=== PATIENT | female | born 1965 | race Caucasian/White ===

== ENCOUNTER 2023-09-04 08:50 | Outpatient (OUT) | payer BC, SELFPAY ==
--- NOTE | 2023-09-04 08:56 | ECG_ITS ---
[facility] Test Date: 2023-09-04 Pat Name: SOL ASCENCIO Department: Room: - Gender: Female Ticket Marker: : 1965 Requested By: Order Number: [id number] Reading MD: DANIS HUBBARD Measurements Intervals [place] Rate: 55 P: 48 ID: [id number] QRS: 3 QRSD: 91 T: 27 QT: 425 QTc: 410 Interpretive Statements SINUS BRADYCARDIA WITH OCCASIONAL VENTRICULAR PREMATURE COMPLEXES No previous ECG available for comparison Electronically Signed On 09-04-2023 22:25:12 EDT by DANIS HUBBARD
== END 2023-09-04 08:51 | disposition home or self-care (01) ==
LOC: PST 08:53
PROVIDERS: Visit Provider Obstetrics & Gynecology
DX: Z01.810 Encounter for preprocedural cardiovascular examination (principal); N87.1 Moderate cervical dysplasia
CPT/HCPCS: 93005

== ENCOUNTER 2023-09-21 07:26 | Day surgery (SDC) | payer BC, SELFPAY ==
[2023-09-04 09:01] VITALS: BP 142/80; PULSE 58; TEMP 36.2; O2SAT 98; BMI 28.5
[2023-09-21] VITALS (11 sets, daily range): BP systolic 105–161; BP diastolic 79–94; PULSE 54–74; TEMP 35.8–36.5; O2SAT 95–100
--- OUTSIDE RECORDS SUMMARY | 2023-09-21 07:29 | XMS_ITS ---
Patient Summarization (C-CDA 2.1 CCD) Created on: September 21, 2023 KARUNAGUIDOOmar AZEVEDO SOL Omar~SONU : 1965 Sex: Female Author Organization Sample organization Care Team Providers Care Pc Support Specialist Name Role Phone NATALIA BAH Admitting Unavailable NATALIA BAH Attending Unavailable NATALIA BAH Consulting Unavailable DORON, SMITH Barnes Attending Unavailab le HOOPS, HALLE Attending Unavailable HAVERNON, SMITH A Referring Unavailab le HACKRUTHBURG, SMITH A Attending Unavailab le FLORO, MOE Nelson Attending Unavailable FLORO, MOE Nelson Attending Unavailable HACKENBURG, SMITH A Attending Unavailab le ALCIRA, JOSE MANUEL Attending Unavailable MIRANDAO, MOE Nelson Referring Unavailable Encounters Encounter Date Encounter Type Care Provider Facility Start: 08-07-2023 End: 08-07-2023 ambulatory JOSE MANUEL ALCIRA Not Available Start: 07-24-2023 End: 07-24-2023 ambulatory SMITH A HACKENBURG Not Available Start: 07-18-2023 End: 07-19-2023 ambulatory MOE L FLORO Not Available Start: 07-03-2023 End: 07-04-2023 ambulatory MOE L FLORO Not Available Start: 06-22-2023 End: 06-22-2023 ambulatory SMITH A HACKENBURG Not Available Start: 06-13-2023 End: 06-14-2023 ambulatory SMITH A HACKENBURG Not Available Start: 06-05-2023 End: 06-06-2023 ambulatory HALLE HOOPS Not Available Start: 08-15-2018 End: 08-15-2018 Patient encounter procedure NATALIA BAH Facility: Payers Date Payer Category Payer Unknown [id number] 1965 Unknown [id number] 2.16.84 [id number] 1965 Unknown [id number] 2.16.84 0.1.396318.3.579.2.1258 1965 Unknown [id number] 2.16.84 0.1.642274.3.579.2.1258 1965 Unknown [id number] 2.16.84 0.1.599518.3.579.2.1258 1965 Unknown [id number] 2.16.84 0.1.433703.3.579.2.1258 1965 Unknown [id number] 2.16.84 0.1.301904.3.579.2.1258 1965 Unknown [id number] 2.16.84 0.1.598962.3.579.2.1258 1965 Unknown [id number] 2.16.84 0.1.241378.3.579.2.1258 1965 Unknown [id number] 2.16.84 0.1.981804.3.579.2.1258 1965 Unknown [id number] 2.16.84 0.1.160797.3.579.2.9 1961 Unknown [id number] Problems Problem Classification Problem Date Documented Da te Episodic/Chronic Other screening for suspected conditions (not mental disorders or infectious disease) (4 sources) Encounter for screening for malignant neoplasm of cervix; Translations: [ENC SCREENING MALIG NEOPLASM CERV] Onset: 08-15-2018 Episodic Results Test Name Value Interpretation Reference Range Facility BI MAMMOGRAM SCREENING TOMOS BISHNU BILATERALon 06-13-2023 BI MAMMOGRAM SCREENING TOMOSYNTHESIS BILATERAL This is a summary report. The complete report is available in the patient's medical record. If you cannot access the medical record, please contact the sending organization for a detailed fax or copy. EXAMINATION: BI MAMMOGRAM SCREENING TOMOSYNTHESIS BILATERAL CLINICAL HISTORY:screening COMPARISON: February 15, 2022. RESULT: Digital mammography and 3D tomosynthesis of bilateral breasts was performed. Density: Almost entirely fatty [1] Overall appearance is stable. There is no suspicious mass, asymmetry, architectural distortion, or calcification IMPRESSION: BIRADS 1 - Negative Follow-up: Routine Screening Mamm Board Certified Radiologists. Accredited by the ACR and FDA. MAMMOGRAPHY IS VERY IMPORTANT TO YOUR HEALTH. THE [place] [employer] GUIDELINES RECOMMEND THAT WOMEN 40 YEARS OF AGE AND OLDER SHOULD HAVE A MAMMOGRAM EVERY YEAR. A REMINDER LETTER WILL BE SENT AT THE APPROPRIATE TIME. THIS FACILITY UTILIZES A REMINDER SYSTEM TO ENSURE ALL PATIENTS RECEIVE REMINDER NOTIFICATIONS AT THE APPROPRIATE TIME BASED ON THE RECOMMENDATIONS OF THIS EXAM. THIS INCLUDES REMINDERS FOR ROUTINE SCREENING MAMMOGRAMS, DIAGNOSTIC MAMMOGRAMS IN WHICH THE PATIENT IS ASKED TO RETURN FOR ADDITIONAL VIEWS, OR OTHER BREAST IMAGING INTERVENTIONS WHEN APPROPRIATE. THE PATIENT WILL BE PLACED IN THE APPROPRIATE REMINDER SYSTEM INCLUDING A REMINDER AT THE APPROPRIATE TIME FOR ANY PENDING ADDITIONAL VIEWS. TRANSCRIBED BY: ELECTRONICALLY SIGNED BY: Herbie Alvarado MD Normal Not Available PAP ACOG PANEL 2: 30 to 65on 08-17-2018 Age Gdln ACOG Testing - Normal [facility] Comment on above: Performed By: #### [id number] #### [facility] [address] [place] [address] Varinder Elliott DIAGNOSIS: Comment Abnormal [facility] Comment on above: Result Comment: EPIT HELIAL CELL ABNORMALITY. ATYPICAL SQUAMOUS CELLS OF UNDETERMINED SIGNIFICANCE (ASC-US). Performed at: WB Performed By: #### [id number] #### [facility] [address] [place] [address] Varinder Elliott Electronically signed by: Comment Normal [facility] Comment on above: Result Comment: Tracy Faulkner MD, Pathologist Performed at: WB Performed By: #### [id number] #### [facility] [address] [place] [address] Varinder Elliott HPV Aptima Negative Normal Negative [facility] Comment on above: Result Comment: This test detects fourteen high-risk HPV types (16/18/31/33/35/39/45/ 51/52/56/58/59/66/68) without differentiation. Performed at: =G Performed By: #### [id number] #### [facility] [address] [place] [address] Varinder Elliott Methodology: Comment Normal [facility] Comment on above: Result Comment: This liquid based ThinPrep(R) pap test was screened with the use of an image guided system. Performed at: WB Performed By: #### [id number] #### [facility] [address] [id number] Varinder Lexi Note: Comment Normal [facility] Comment on above: Result Comment: The Pap smear is a screening test designed to aid in the detection of premalignant and malignant conditions of the uterine cervix. It is not a diagnostic procedure and should not be used as the sole means of detecting cervical cancer. Both false-positive and false-negative reports do occur. . Performed at: WB Performed By: #### [id number] #### [facility] [address] [address] Varinder Lexi Performed by: Comment Normal [facility] Comment on above: Result Comment: Dov De Leon, Power Generating Plant Operator (ASCP) Performed at: WB Performed By: #### [id number] #### [facility] [address] [address] Varinder Lexi Protein mass conc Comment Normal [facility] Comment on above: Result Comment: R87. 610 Performed at: WB Performed By: #### [id number] #### [facility] [address] [id number] Varinder Lexi Recommendation: Comment Abnormal [facility] Comment on above: Result Comment: Sugg est follow up as clinically appropriate. Performed at: WB Performed By: #### [id number] #### [facility] [address] [address] Varinder Lexi Specimen adequacy: Comment Normal [facility] Comment on above: Result Comment: Sati sfactory for evaluation. Endocervical and/or squamous metaplastic cells (endocervical component) are present. Performed at: WB Performed By: #### 4 [id number] #### [facility] [address] [id number] Varinder Lexi . . Normal [facility] Comment on above: Result Comment: Perf ormed at: WB Performed By: #### [id number] #### [facility] [address] [id number] Varinder Lexi Summary Purpose Family History No Family History Records FoundNo Family History Records Found Advance Directives No Advanced Directives Records FoundNo Advanced Directives Records Found Additional Source Comments INFORMATION SOURCE (unrecogn ized section and content) DATE CREATED AUTHOR 08/23/2018 [facility] DATE CREATED AUTHOR AUTHOR'Bere ANGULO 08/09/2023 [facility] FOR RECORDS PERTAINING TO PATIENTS WHO ARE OR HAVE BEEN ENROLLED IN A CHEMICAL DEPENDENCY/SUBSTANCEABUSE PROGRAM, SOME INFORMATION MAY BE OMITTED. This clinical summary was aggregated from multiple sources. Caution should be exercised in using it in the provision of clinical care. This summary normalizes information from multiple sources, and as a consequence, information in this document may materially change the coding, format and clinical context of patient data. In addition, data may be omitted in some cases. CLINICAL DECISIONS SHOULD BE BASED ON THE PRIMARY CLINICAL RECORDS. [facility] [employer] provides no warranty or guarantee of the accuracy or completeness of information in this document.
[2023-09-21 07:36] LABS: Basophils Percent Auto 0.7 % (0.2-2.0); Eosinophils Absolute Auto 0.2 10^3/uL (0.0-0.7); Eosinophils Percent Auto 5.4 % (0.9-7.0); Hematocrit 36.6 % (36.0-48.0); Hemoglobin 12.2 g/dL (12.0-16.0); Immature Granulocytes Abs Auto 0.01 10^3/uL (0.00-0.03); Immature Granulocytes Pct Auto 0.2 % (0.0-0.5); Lymphocytes Absolute Auto 1.3 10^3/uL (1.2-3.8); Lymphocytes Percent Auto 31.3 % (20.5-60.0); Mean Corpuscular HGB Conc 33.3 g/dL (29.9-35.2); Mean Corpuscular Hemoglobin 33.9 pg (26.7-34.0); Mean Corpuscular Volume 101.7 fL (81.0-99.0); Mean Platelet Volume 9.6 fL (9.5-13.5); Monocytes Absolute Auto 0.5 10^3/uL (0.3-0.8); Monocytes Percent Auto 12.1 % (1.7-12.0); Neutrophils Absolute Auto 2.2 10^3/uL (1.4-6.5); Neutrophils Percent Auto 50.3 % (43.0-75.0); Platelet Count 252 10^3/uL (150-450); Red Cell Distribution Width 12.7 % (11.0-15.0); White Blood Count 4.3 10^3/uL (4.0-11.0)
[2023-09-21] MEDS: LACTATED RINGER'S SOLUTION 1,000 ML 50 ML IV (07:53)
[2023-09-21] MEDS: IODINE/POTASSIUM IODIDE 8 ML SOLUTION TOPICAL (09:08)
[2023-09-21] MEDS: FERRIC SUBSULFATE 8 ML SOLUTION TOPICAL (09:08)
--- NOTE | 2023-09-21 09:15 | PM.ONB ---
Brief Operative Note Date of procedure: 09/21/23 Pre-op diagnosis general: cervical dysplasia Post-op diagnosis: same as pre-op Procedure: NAME OF PROCEDURE: [leep ] PROCEDURE: Patient was taken back to the Operating Room where she was given general anesthesia without difficulty. She was then placed in the dorsal lithotomy position. She was then prepped and draped in the normal sterile fashion. A weighted speculum was placed into the patient's vagina. The anterior lip of the cervix was identified and grasped with a single-tooth tenaculum. The patient's cervix was then copiously irrigated using vinegar.? Then, a Lugol Solution was also placed onto the patient's cervix which demonstrated increased uptake of the Lugol solution at the [3? ] o?clock and [7? ] o?clock positions.? At that time, the LEEP portion of the procedure was performed, including both the [3? ] o?clock and [?7 ] o?clock positions. tophat was peformed. The ectocervix and endocervical tissue was sent out to Pathology. The patient's cervix was then coagulated using suction cautery. Excellent hemostasis was assured.? Monsel Solution was then placed onto the patient's cervix to help maintain adequate hemostasis. All instruments were removed from the patient's vagina. The anterior lip of the cervix demonstrated excellent hemostasis.? The patient tolerated the procedure well. Sponge, lap, and needle counts were correct x 2. The patient was taken to Recovery Room in stable condition. Anesthesia: MAC Surgeon: José Miguel Chandra Estimated blood loss (mL): 5 Pathology: other (endo and ectocervical tissue) Condition: stable Disposition: PACU Urinary Catheter Management Urinary Catheter Management Urethral: Cath placed during this visit: no
--- NOTE | 2023-09-21 10:31 | PC.NURSE ---
1020: pt ambulates to bathroom with minimal assistance,voids without difficulty.
== END 2023-09-21 10:23 | disposition home or self-care (01) ==
PROVIDERS: Visit Provider Obstetrics & Gynecology
PROC: (CPT 940; principal; 2023-09-21 08:25)
DX: N87.1 Moderate cervical dysplasia (principal); A63.0 Anogenital (venereal) warts; Z90.49 Acquired absence of other specified parts of digestive tract; Z98.51 Tubal ligation status; J45.909 Unspecified asthma, uncomplicated
CPT/HCPCS: 57522; 36415; 85025; 88307; J1100; J1885; J2250; J2405; J2704; J3010

== ENCOUNTER 2024-02-07 19:25 | Outpatient (REF) | payer BC, SELFPAY ==
--- OUTSIDE RECORDS SUMMARY | 2024-02-07 19:30 | XMS_ITS | CCD ---
Author Organization [facility] Care Team Providers Care Senior Mechanical Project Manager Name Role Phone NATALIA BAH Admitting Unavailable NATALIA BAH Attending Unavailable NATALIA BAH Consulting DO Jose Manuel Rojas Attending Provider Jose Manuel Chandra Attending Unavailable Jose Manuel Chandra Admitting Unavailable SMITH SAL Attending UnavailHALLE Joel Attending Unavailable SMITH SAL Referring Unavailab roshan SAL, SMITH Barnes Attending UnavailMOE Cisse Attending Unavailable MOE CURTIS Attending Unavailable DORON, SMITH Barnes Attending Unavailab JOSE MANUEL Fish Attending Unavailable MOE CURTIS Referring Unavailable JOSE MANUEL CHANDRA Attending Unavailable ISIDRO BISWAS Attending Unavailable Problems Problem Classification Problem Date Documented Da te Episodic/Chronic Other screening for suspected conditions (not mental disorders or infectious disease) (4 sources) Encounter for screening for malignant neoplasm of cervix; Translations: [ENC SCREENING MALIG NEOPLASM CERV] Onset: 08-15-2018 Episodic Results Test Name Value Interpretation Reference Range Facility [facility] 09-21-2023 L Specimen: [id number] Received: 09/21/23 Status: JESSICA Clifton Num: [id number] Spec Type: Surgical Subm Dr: Jose Manuel Chandra Tissues: A Cone/Leep (ECTOCERVICAL) B Endocervix - Biopsy (ENDOCERVICAL BX) Procedures: HE/10, Gross/Micro L5, Gross/Micro L4 Age/ Patient Sex Location Account Attending Physician Vickie Duvall 57/F LABELL [id number] Jose Manuel Chandra SPEC NUM: [id number] RECD: 09/21/23 STATUS: JESSICA CLIFTON NUM: [id number] MESHA: 09/21/[address]: Jose Manuel Chandra ENTERED: 09/21/[address] [facility] DR: Kamaljit,Lab SPEC TYPE: Surgical DEPT: [facility] BY: [id number] ORDERED: HE/10, Gross/Micro L5, Gross/Micro L4 ORDERED: HE/10, Gross/Micro L5, Gross/Micro L4 Pathological Diagnosis A. 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 B. 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 Clinical Information Cervical intraepithelial neoplasia grade 2 Gross Description Received are 2 formalin filled containers each labeled with the patient's name, date of and specific specimen site. A. Further labeled ectocervical BX are 3 portions of cervical tissue ranging from 1.1 to 2.0 cm and measuring in aggregate 2.1 x 1.7 x 0.3 cm. The ectocervix present is kan-pink, smooth and unremarkable. Each fragment is inked blue along its resection margin. Each fragment is serially sectioned revealing unremarkable kan cut surfaces with no visible lesions present. The specimen is entirely submitted in A1?A2. B. Further labeled endocervical BX is a 1.2 x 1.1 x 0.5 cm portion of kan, cauterized cervical tissue. The specimen is inked green along its resection margin, serially sectioned revealing unremarkable kan-pink cut surfaces. No visible lesions are present. The specimen is entirely submitted in B1. ---- Specimen: [id number] Received: 09/21/23 Status: JESSICA Clifton Num: [id number] Spec Type: Surgical Subm Dr: Jose Manuel Chandra Tissues: A Cone/Leep (ECTOCERVICAL) B Endocervix - Biopsy (ENDOCERVICAL BX) Procedures: HE/10, Gross/Micro L5, Gross/Micro L4 ---- Patient: Vickie Duvall [id number] (Continued) ---- Specimen: [id number] Received: 09/21/23 (Continued) Signed (signature on file) Lucinda Collazo MD 09/24/23 1400 ---- Specimen: [id number] Received: 09/21/23 Status: JESSICA Clifton Num: [id number] Spec Type: Surgical Subm Dr: Jose Manuel Chandra Tissues: A Cone/Leep (ECTOCERVICAL) B Endocervix - Biopsy (ENDOCERVICAL BX) Procedures: CHANTE/Gm, Gross/Micro L5, Gross/Micro L4 ---- Patient: Vickie Duvall [id number] (Continued) ---- Specimen: [id number] Received: 09/21/23 (Continued) CPT Codes 71055v1 ---- ---- Specimen: [id number] Received: 09/21/23 Status: JESSICA Clifton Num: [id number] Spec Type: Surgical Subm Dr: Jose Manuel Chandra Tissues: A Cone/Leep (ECTOCERVICAL) B Endocervix - Biopsy (ENDOCERVICAL BX) Procedures: HE/10, Gross/Micro L5, Gross/Micro L4 ---- Patient: Vickie Duvall [id number] (Continued) ---- Signed (signature on file) Lucinda Collazo MD 09/24/23 1400 Normal [facility] Physician [facility] BI MAMMOGRAM SCREENING TOMOS YNTHESIS BILATERALon 06-13-2023 BI MAMMOGRAM SCREENING TOMOSYNTHESIS BILATERAL [...] IS VERY IMPORTANT TO YOUR HEALTH. THE [place] CAN[employer] SOCIETY GUIDELINES RECOMMEND THAT WOMEN 40 [...] to 65on 08-17-2018 Age Gdln ACOG Testing 30-65 Normal [facility] Comment on above: Performed By: #### [id number] #### [facility] [address] [place] [address] Varinder Elliott DIAGNOSIS: Comment Abnormal [facility] Comment on above: Result Comment: EPIT HELIAL CELL ABNORMALITY. ATYPICAL SQUAMOUS CELLS OF UNDETERMINED SIGNIFICANCE (ASC-US). Performed at: WB Performed By: #### [id number] #### [facility] [address] [place] [address] Varinder Elliott Electronically signed by: Comment Normal [facility] Comment on above: Result Comment: Tracy Faulkner MD, Pathologist Performed at: WB Performed By: #### [id number] #### [facility] [address] [place] [address] Varinder Elliott HPV Aptima Negative Normal Negative [facility] Comment on above: Result Comment: This test detects fourteen high-risk HPV types (16/18/31/33/35/39/45/ 51/52/56/58/59/66/68) without differentiation. Performed at: =G Performed By: #### [id number] #### [facility] [address] [place] [address] Varinder Elliott Methodology: Comment Normal [facility] Comment on above: Result Comment: This liquid based ThinPrep(R) pap test was screened with the use of an image guided system. Performed at: WB Performed By: #### [id number] #### [facility] [address] [place] [address] Varinder Elliott Note: Comment Normal [facility] Comment on above: Result Comment: The Pap smear is a screening test designed to aid in the detection of premalignant and malignant conditions of the uterine cervix. It is not a diagnostic procedure and should not be used as the sole means of detecting cervical cancer. Both false-positive and false-negative reports do occur. . Performed at: WB Performed By: #### [id number] #### [facility] [address] [place] [address] Varinder Elliott Performed by: Comment Normal [facility] Comment on above: Result Comment: Dov De Leon, Education Officer (ASCP) Performed at: WB Performed By: #### [id number] #### [facility] [address], [place] [address] Varindercandy Elliott Protein mass conc Comment Normal [facility] Comment on above: Result Comment: R87. 610 Performed at: WB Performed By: #### [id number] #### [facility] [address] [place], [place] [address] Varindercandy Elliott Recommendation: Comment Abnormal [facility] Comment on above: Result Comment: Sugg est follow up as clinically appropriate. Performed at: WB Performed By: #### [id number] #### [facility] [address] [place], [place] [address] Varinder Elliott Specimen adequacy: Comment Normal [facility] Comment on above: Result Comment: Sati sfactory for evaluation. Endocervical and/or squamous metaplastic cells (endocervical component) are present. Performed at: WB Performed By: #### [id number] #### [facility] [address] [place], [place] [address] Varinder Elliott . . Normal [facility] Comment on above: Result Comment: Perf ormed at: WB Performed By: #### [id number] #### [facility] [address] [place], [place] [address] Varinder Elliott Encounters Encounter Date Encounter Type Care Provider Facility Start: 10-04-2023 End: 10-04-2023 ambulatory ISIDRO BISWAS Not Available Start: 09-21-2023 End: 09-21-2023 ambulatory Jose Manuel Prateek [facility] Work Phone: Start: 09-21-2023 End: 09-21-2023 Departed Referred DO Jose Manuel Prateek Work Phone: [facility] Start: 08-27-2023 End: 08-27-2023 ambulatory JOSE AMNUEL PRATEEK Not Available Start: 08-07-2023 End: 08-07-2023 ambulatory JOSE MANUEL PRATEEK Not Available Start: 07-24-2023 End: 07-24-2023 ambulatory SMITH SAL Not Available Start: 07-18-2023 End: 07-18-2023 ambulatory MOE JEANO Not Available Start: 07-03-2023 End: 07-03-2023 ambulatory MOE Nelson FLORO Not Available Start: 06-22-2023 End: 06-22-2023 ambulatory SMITH SAL Not Available Start: 06-13-2023 End: 06-13-2023 ambulatory SMITH A HAOMARENBURG Not Available Start: 06-05-2023 End: 06-05-2023 ambulatory HALLE VARNER Not Available Start: 08-15-2018 End: 08-15-2018 Patient encounter procedure NATALIA BAH Facility: Payers Date Payer Category Payer Self-pay 2022 Unknown [id number] 1965 Unknown [id number] 2.16.84 0.1.362095.3.579.2.593 1965 Unknown [id number] 2.16.84 0.1.089071.3.579.2.1258 1965 Unknown [id number] 2.16.84 0.1.208563.3.579.2.1258 1965 Unknown [id number] 2.16.84 0.1.083862.3.579.2.1258 1965 Unknown [id number] 2.16.84 0.1.694355.3.579.2.1258 1965 Unknown [id number] 2.16.84 0.1.263422.3.579.2.1258 1965 Unknown [id number] 2.16.84 0.1.953939.3.579.2.1258 1965 Unknown [id number] 2.16.84 0.1.519855.3.579.2.1258 1965 Unknown [id number] 2.16.84 0.1.086145.3.579.2.1258 1965 Unknown [id number] 2.16.84 0.1.622077.3.579.2.1259 1965 Unknown [id number] 2.16.84 0.1.508391.3.579.2.1259 1965 Unknown [id number] 2.16.84 0.1.705004.3.579.2.1259 1961 Unknown [id number] Unknown [id number] 2.16.8 40.1.022728.3.579.2.531 Social History Date Type [facility]ail [facility] Work Phone: Start: 1965 Sex Assigned At Female F [facility] Evaluation note Note Date & Type Note Facility Evaluation note No assessment information availa ble [facility] Work Phone: Summary Purpose Family History No Family History Records FoundNo Family History Records FoundNo Family History Records Found Advance Directives No Advanced Directives Records Found Advance Directive Response Recorded Date/ Time Advance Directives No September 20 12:55pm Additional Source Comments INFORMATION SOURCE (unrecogn ized section and content) DATE CREATED AUTHOR 08/23/2018 [facility] DATE CREATED AUTHOR AUTHOR'S ORGANIZ ATION 10/01/2023 [facility] DATE CREATED AUTHOR AUTHOR'S ORGANIZ ATION 10/08/2023 [facility] [employer] Care Teams (unrecognized sec tion and content) Team Status: Inactive Member Role Status Dates Jose Manuel Chandra DO Attending Provider Active Start : September 21, 2023 End: September 21, 2023 Goals (unrecognized section and content) Goals may be documented in a n alternate section FOR RECORDS PERTAINING TO PATIENTS WHO ARE [...] BE BASED ON THE PRIMARY CLINICAL RECORDS. [employer] [facility]. provides no warranty or guarantee of the accuracy or completeness of information in this document.
== END 2024-02-07 19:26 | disposition home or self-care (01) ==
LOC: LAB 19:25
PROVIDERS: Visit Provider Physician Assistant
DX: R87.619 Unspecified abnormal cytological findings in specimens from cervix uteri (principal); B97.7 Papillomavirus as the cause of diseases classified elsewhere; Z86.19 Personal history of other infectious and parasitic diseases
CPT/HCPCS: 87624; 88175

== ENCOUNTER 2024-06-09 14:57 | Outpatient (REF) | payer BC, SELFPAY | END 2024-06-09 14:58 | disposition home or self-care (01) | LOC: LAB 14:57 | PROVIDERS: Visit Provider Obstetrics & Gynecology | DX: Z01.419 Encounter for gynecological examination (general) (routine) without abnormal findings (principal) | CPT/HCPCS: 87624; 88175 ==

== ENCOUNTER 2024-10-13 12:17 | Outpatient (REF) | payer BC, SELFPAY ==
--- OUTSIDE RECORDS SUMMARY | 2024-10-04 10:15 | XMS_ITS | Encounter Summary ---
Author Organization [facility] Address [address] [place] [address], [address] [place] [address] Care Team Providers Care Group Home Supervisor Name Role Phone Kyle Shelton MD Primary Care Provider + Reason for Visit * Reason Comments Insect Bite Encounter Details Date Type Department Care Team ([facility] st Contact Info) Description 10/04/2024 10:15 AM EDT Office Visit [facility] [place] [address] Katey Vasquez APRN - NP [address] [place] [address] Allergic reaction to wasp sting (Primary Dx) Social History Tobacco Use Types Packs/Day Years Used Date Smoking Tobacco: Never Smokeless Tobacco: Never Alcohol Use Standard Drinks/Week Comments Yes 0 (1 standard drink = 0.6 oz pur e alcohol) occ Comments No Sex and Gender Information Value Date Recorded Sex Assigned at Not on file Legal Sex Female 4:43 PM EST Gender Identity Not on file Sexual Orientation Not on file documented as of this encounter Last Filed Vital Signs Vital Sign Reading Time Taken Comments Blood Pressure 126/81 10/04/2024 11:01 AM EDT Pulse 74 10/04/2024 11:01 AM EDT Temperature 37 C (98.6 F) 10/04/2024 11:01 AM EDT Respiratory Rate 20 10/04/2024 11:01 AM EDT Oxygen Saturation 98% 10/04/2024 11:01 AM EDT Inhaled Oxygen Concentration - - Weight 73 kg (161 lb) 10/04/2024 11:01 AM EDT Height 165.1 cm (5' 5 ) 10/04/2024 11:01 AM EDT Body Mass Index 26.79 10/04/2024 11:01 AM EDT documented in this encounter Progress Notes * Katey Vasquez APRN - NP - 10/04/2024 10:25 AM EDT Images from the original note were not included. [facility], [facility] ([facility]) [facility] [address] [address] Dept: [phone] Date: 10/04/24 Visit date not found Vickie Duvall (: 1965) is a 58 y.o. female, here for evaluation of the following chief complaint(s): Insect Bite HPI Pt stung by a wasp yesterday. Her wrist forearm area is swollen and tender. She has history of reaction in similar way Insect Bite Associated symptoms: rash Past Medical History: Diagnosis Date Acute cystitis with hematuria 01/04/2016 Asthma Bilateral renal cysts Lumbar disc disorder 02/06/2014 ROS Review of Systems Skin: Positive for rash. All other systems reviewed and are negative. PHYSICAL EXAM Vitals: 10/04/24 1101 BP: 126/81 BP Site: Left Upper Arm Patient Position: Sitting Pulse: 74 Resp: 20 Temp: 98.6 ??F (37 ??C) TempSrc: Oral SpO2: 98% Weight: 73 kg (161 lb) Height: 1.651 m (5' 5 ) Physical Exam Vitals and nursing note reviewed. Constitutional: General: She is not in acute distress. Appearance: Normal appearance. She is normal weight. She is not ill-appearing, toxic-appearing or diaphoretic. HENT: Head: Normocephalic and atraumatic. Nose: Nose normal. Mouth/Throat: Mouth: Mucous membranes are moist. Pharynx: Oropharynx is clear. Eyes: Extraocular Movements: Extraocular movements intact. Conjunctiva/sclera: Conjunctivae normal. Pupils: Pupils are equal, round, and reactive to light. Cardiovascular: Rate and Rhythm: Normal rate and regular rhythm. Pulses: Normal pulses. Heart sounds: Normal heart sounds. Pulmonary: Effort: Pulmonary effort is normal. Breath sounds: Normal breath sounds. Abdominal: General: Abdomen is flat. Palpations: Abdomen is soft. Musculoskeletal: Cervical back: Normal range of motion and neck supple. Skin: Findings: Erythema and rash present. Rash is urticarial. Comments: Right wrist lateral side has swelling, urticaria surrounding puncture wound present. Neurological: Mental Status: She is alert. No results found for this visit on 10/04/24. No orders of the defined types were placed in this encounter. ASSESSMENT/PLAN: ICD-10-CM 1. Allergic reaction to wasp sting T63.461A methylPREDNISolone (MEDROL DOSEPACK) 4 MG tablet hydrOXYzine HCl (ATARAX) 25 MG tablet Encouraged patient to start medications today to help with symptoms. May apply ice packs for comfort. Follow up with PCP if no improvement of symptoms Discussed exam, results, diagnosis, plan of care, and follow-up at length with patient. Reviewed all prescribed and recommended medications, administration, and side effects. Encouraged patient to follow up with PCP or return to the clinic if symptoms fail to improve or worsen. All questions were answered. Verbalized understanding of discharge instructions. An electronic signature was used to authenticate this note. --MATI Kimbrough NP documented in this encounter Plan of Treatment Not on file documented as of this encounter Visit Diagnoses Diagnosis Allergic reaction to wasp sting- Primary documented in this encounter Care Teams Group Home Supervisor Relationship Specialty Start Date End Date Kyle Shelton MD [address] [place] [address] PCP - General Family Medicine 07/10/18 documented as of this encounter
--- OUTSIDE RECORDS SUMMARY | 2024-10-13 09:20 | XMS_ITS | Encounter Summary ---
Author Organization [facility] Address [address] [place] [address] Care Team Providers Care Manager Biostatistics Name Role Phone Dara Cat MD Primary Care Provider Reason for Visit * Reason Comments Abnormal Pap Smear Pt present today for a repeat pap smear. Pt had an abnormal pap on 06/09/2024 with + HPV. Encounter Details Date Type Department Care Team (Late st Contact Info) Description 10/13/2024 9:20 AM EDT Procedure [facility] [address] [id number] José Miguel Chandra DO [address] [place] [address] Pap smear to confirm normal after abnormal result Social History Tobacco Use Types Packs/Day Years Used Date Smoking Tobacco: Never Smokeless Tobacco: Never Alcohol Use Standard Drinks/Week Comments Not Currently 0 (1 standard drink = 0.6 oz pur e alcohol) Caffine: 2 cups daily Humiliation, Afraid, Rape, and Kick questionnair e Answer Date Recorded Within the last year, have y ou been afraid of your partner or ex-partner? Patient declined 01/24/2023 Within the last year, have y ou been humiliated or emotionally abused in other ways by your partner or ex-partner? Patient declined 01/24/2023 Within the last year, have y ou been kicked, hit, slapped, or otherwise physically hurt by your partner or ex-partner? Patient declined 01/24/2023 Within the last year, have y ou been raped or forced to have any kind of sexual activity by your partner or ex-partner? No 01/24/2023 Social Connection and Isolat ion Panel [NHANES] Answer Date Recorded In a typical week, how many times do you talk on the phone with family, friends, or neighbors? More than three times a week 01/24/2023 How often do you get togethe r with friends or relatives? Twice a week 01/24/2023 How often do you attend chur or congregational services? Never 01/24/2023 Do you belong to any clubs o r organizations such as tenriism groups, unions, fraternal or athletic groups, or school groups? No 01/24/2023 How often do you attend meet ings of the clubs or organizations you belong to? Patient declined 01/24/2023 Are you , , di vorced, , never , or living with a partner? 01/24/2023 AUDIT-C Answer Date Recorded Q1: How often do you have a drink containing alcohol? 4 or more times a week 01/24/2023 Q2: How many drinks containi ng alcohol do you have on a typical day when you are drinking? 1 or 2 3 Q3: How often do you have si x or more drinks on one occasion? Less than monthly 01/24/2023 Overall Financial Resource Strain (CARDIA) Answe r Date Recorded How hard is it for you to pa y for the very basics like food, housing, medical care, and heating? Not hard at all 01/24/2023 PHQ-2 Answer Date Recorded Patient Health Questionnaire-2 Score 0 06/22/2023 [facility] - Occupational Stress Questionnaire Answer Date Recorded Do you feel stress - tense, restless, nervous, or anxious, or unable to sleep at night because your mind is troubled all the time - these days? Rather much 01/24/2023 Exercise Vital Sign Answer Date Recorde d On average, how many days pe r week do you engage in moderate to strenuous exercise (like a brisk walk)? 4 days 01/24/2023 On average, how many minutes do you engage in exercise at this level? 30 min 01/24/2023 Hunger Vital Sign Answer Date Recorded Within the past 12 months, y ou worried that your food would run out before you got the money to buy more. Never true 01/25/20 23 Within the past 12 months, t he food you bought just didn't last and you didn't have money to get more. Never true 01/24/2023 PRAPARE - Transportation Answer Date Re corded In the past 12 months, has l ack of transportation kept you from medical appointments or from getting medications? No 10/2022 In the past 12 months, has l ack of transportation kept you from meetings, work, or from getting things needed for daily living? No 01/24/2023 Housing Stability Vital Sign Answer Fawad e Recorded In the last 12 months, was t here a time when you were not able to pay the mortgage or rent on time? No 01/24/2023 Number of Places Lived in the Last Year Not on f ile 01/24/2023 In the last 12 months, was t here a time when you did not have a steady place to sleep or slept in a intermediate (including now)? No 01/24/2023 Comments No Sex and Gender Information Value Date Recorded Sex Assigned at Female 01/24/2023 9:27 AM EST Legal Sex Female 9:28 PM EDT Gender Identity Female 01/24/2023 9:27 AM EST Sexual Orientation Not on file documented as of this encounter Last Filed Vital Signs Vital Sign Reading Time Taken Comments Blood Pressure 116/72 10/13/2024 9:30 AM EDT Pulse - - Temperature - - Respiratory Rate - - Oxygen Saturation - - Inhaled Oxygen Concentration - - Weight 73.9 kg (163 lb) 10/13/2024 9:30 AM EDT Height - - Body Mass Index 27.12 08/07/2023 1:16 PM EDT documented in this encounter Progress Notes * Mamie Macias NP - 10/13/2024 9:20 AM EDT Reason for Appointment: Patient ID: Vickie Duvall is a 58 y.o. female who presents for Abnormal Pap Smear (Pt present today for a repeat pap smear. Pt had an abnormal pap on 06/09/2024 with + HPV.) Patient presents today for Repeat Pap. MEDICATIONS Current Outpatient Medications Medication Instructions hydrOXYzine HCl (ATARAX) 25 mg, Every 8 hours PRN methylPREDNISolone (Medrol Dospak) 4 MG tablets TAKE 6 TABLETS ON DAY 1 DIRECTED ON PACKAGE AND DECREASE BY 1 TAB EACH DAY FOR A TOTAL OF 6 DAYS methylPREDNISolone (Medrol) 4 MG tablet Take by mouth as dose pack recommends for 6 days Multiple Vitamins-Minerals (ONE A DAY IMMUNITY DEFENSE PO) Oral vitamin C 500 mg, Oral, Daily ALLERGIES Allergies Allergen Reactions Sulfa Antibiotics Hives and Unknown PROBLEMS Active Ambulatory Problems Diagnosis Date Noted Acute cystitis with hematuria 01/04/2016 Atheroscler of [place] artery of both legs with intermit claudication 06/22/2023 Bilateral renal cysts 06/22/2023 Coagulation disorder (HHS-HCC) 06/22/2023 Liver cyst 06/22/2023 Lumbar disc disorder 02/06/2014 Obesity (BMI 30.0-34.9) 06/22/2023 Seasonal allergic rhinitis 06/22/2023 Asthma (HCC) 07/24/2023 Nonspecific chest pain 04/09/2017 Abnormal glandular Papanicolaou smear of cervix 02/07/2024 High risk HPV infection 02/07/2024 CORI II (cervical intraepithelial neoplasia II) 02/07/2024 History of HPV infection 02/07/2024 Resolved Ambulatory Problems Diagnosis Date Noted No Resolved Ambulatory Problems Past Medical History: Diagnosis Date Allergic HISTORY PAST MEDICAL HISTORY SOCIAL HISTORY Past Medical History: Diagnosis Date Allergic Asthma (HCC) Social History Tobacco Use Smoking status: Never Smokeless tobacco: Never Substance Use Topics Alcohol use: Not Currently Comment: Caffine: 2 cups daily Drug use: Never FAMILY HISTORY No family history on file. SURGICAL HISTORY Past Surgical History: Procedure Laterality Date CERVICAL BIOPSY W/ LOOP ELECTRODE EXCISION 09/21/2023 CHOLECYSTECTOMY SPINE SURGERY cervical and lumbar disc herniations TONSILLECTOMY TUBAL LIGATION UMBILICAL HERNIA REPAIR REVIEW OF SYSTEMS Review of Systems: Review of Systems Constitutional: Negative. HENT: Negative. Eyes: Negative. Respiratory: Negative. Cardiovascular: Negative. Gastrointestinal: Negative. Genitourinary: Negative. Musculoskeletal: Negative. Skin: Negative. Neurological: Negative. All other systems reviewed and are negative. Hematological: Negative. Endocrine: Negative. Allergic/Immunologic: Negative. OBJECTIVE Objective: Physical Exam Constitutional: Appearance: Normal appearance. She is well-developed. Genitourinary: Vulva normal. Cardiovascular: Rate and Rhythm: Normal rate and regular rhythm. Pulmonary: Effort: Pulmonary effort is normal. Breath sounds: Normal breath sounds. Abdominal: General: Bowel sounds are normal. There is no distension. Palpations: Abdomen is soft. Tenderness: There is no abdominal tenderness. There is no guarding or rebound. Musculoskeletal: General: No swelling. Normal range of motion. Right lower leg: No edema. Left lower leg: No edema. Neurological: Mental Status: She is alert and oriented to person, place, and time. Skin: General: Skin is warm and dry. Psychiatric: Mood and Affect: Mood normal. Behavior: Behavior normal. Vitals and nursing note reviewed. Exam conducted with a ice platform supervisor present. Vitals: Estimated body mass index is 27.12 kg/m?? as calculated from the following: Height as of 08/07/23: 5' 5 . Weight as of this encounter: 163 lb. BP: 116/72 No LMP recorded. Patient is postmenopausal. ASSESSMENT & PLAN ICD-10-CM 1. Pap smear to confirm normal after abnormal result Z01.42 THIN PREP TIS PAP AND HR HPV DNA Patient returns for repeat pap with history of HPV + PAP. Plan to return for repeat PAP in 1 year. Documented by Mamie Macias NP on behalf of: José Miguel Chandra DO documented in this encounter Plan of Treatment Upcoming Encounters Date Type Department Care Team (Late st Contact Info) Description 10/19/2025 9:00 AM EDT [facility] [address] [place] [address] José Miguel Chandra DO [address] [place] [address] Scheduled Orders Name Type Priority Associated Diagnoses Orde r Schedule THIN PREP TIS PAP AND HR HPV DNA Pathology and Cytology Routine Pap smear to confirm normal after abnormal result Ordered: 10/13/2024 documented as of this encounter Visit Diagnoses Diagnosis Pap smear to confirm normal after abnormal result Encounter for Papanicolaou cervical smear to confirm findings of recent normal smear following initial abnormal smear documented in this encounter Care Teams Manager Biostatistics Relationship Specialty Start Date End Date Dara Cat MD [address] [place] [address] PCP - General Family Medicine 07/25/22 documented as of this encounter
--- OUTSIDE RECORDS SUMMARY | 2024-10-13 12:24 | XMS_ITS | Encounter Summary ---
Author Organization [facility] Address [address] [place] [address] Care Team Providers Care Transportation Logistics Internship Name Role Phone Dara Cat MD Primary Care Provider [phone] Encounter Details Date Type Department Care Team (Late st Contact Info) Description 09/04/2023 Clinisync Result Encounter [facility] External Department Unsolicited José Miguel Chandra, DO [address] [place] [address] Social History Tobacco Use Types Packs/Day Years [...] 01/24/2023 How often do you attend chur ch or mormon services? Never 01/24/2023 Do you belong to any clubs o r organizations such as taoism groups, unions, fraternal or athletic groups, or [...] Recorded Patient Health Questionnaire-2 Score 0 06/22/2023 [facility] - Occupational Stress [...] place to sleep or slept in a half-way (including now)? No 01/24/2023 Comments No Sex and Gender Information Value Date Recorded Sex Assigned at Female 01/24/2023 9:27 AM EST Legal Sex Female 9:28 PM EDT Gender Identity Female 01/24/2023 9:27 AM EST Sexual Orientation Not on file documented as of this encounter Plan of Treatment Upcoming Encounters Date Type Department Care Team (Late st Contact Info) Description 10/19/2025 9:00 AM EDT Procedure Visit [facility] [address] [facility] [address] [id number] José Miguel Chandra DO [address] [place], [place] [id number] documented as of this encounter Procedures Procedure Name Priority Date/Time Associated Diagnosis Comments ECG 12-LEAD 09/04/2023 9:24 AM EDT documented in this encounter Results * ECG 12-LEAD (09/04/2023 9:24 AM EDT) Anatomical Region Laterality Modality Other 09/04/2023 9:24 AM EDT Narrative 09/04/2023 10:25 PM EDT The [address] [address] Electrocardiograph Report Signed Patient: VICKIE DUVALL MR#: [id number] : 1965 Acct:[id number] Age/Sex: 57 / F ADM Date: 09/04/23 Loc: PST Attending Dr: José Miguel Chandra D.O. Ordering Physician: José Miguel Chandra D.O. Date of Service: 09/04/23 Procedure(s): ECG 12 lead Accession Number(s): [id number] cc: [facility] Test Date: 2023-09-04 Pat Name: VICKIE DUVALL Department: Room: - Gender: Female Hoist Mechanic: : 1965 Requested By: Order Number: [id number] Reading MD: DAJUAN HUBBARD Measurements Intervals [place] Rate: 55 P: 48 MA: 146 QRS: 3 QRSD: 91 T: 27 QT: 425 QTc: 410 Interpretive Statements SINUS BRADYCARDIA WITH OCCASIONAL VENTRICULAR PREMATURE COMPLEXES No previous ECG available for comparison Electronically Signed On 09-04-2023 22:25:12 EDT by DAJUAN HUBBARD Dictated By: Dajuan Hubbard D.O. Signed By: 09/04/232224 DD/ 3 TD/TT: Respiratory Scientist: Procedure Note Radiology, Radiologist, MD - 09/04/2023 [place] [address] Electrocardiograph Report Signed Patient: ERNESTO DUVALLNAMR#: [id number] : 1965Acct:[id number] Age/Sex: 57 / FADM Date: 09/04/23 Loc: PST Attending Dr: José Miguel Chandra D.O. Ordering Physician: José Miguel Chandra D.O. Date of Service: 09/04/23 Procedure(s): ECG 12 lead Accession Number(s): [id number] cc: [facility] Test Date: 2023-09-04 Pat Name: VICKIE DUVALL Department: Room: - Gender: Female Hoist Mechanic: : 1965 Requested By: Order Number: [id number] Reading MD: DAJUAN HUBBARD Measurements Intervals [place] Rate: 55 P: 48 MA: 146 QRS: 3 QRSD: 91 T: 27 QT: 425 QTc: 410 Interpretive Statements SINUS BRADYCARDIA WITH OCCASIONAL VENTRICULAR PREMATURE COMPLEXES No previous ECG available for comparison Electronically Signed On 09-04-2023 22:25:12 EDT by DAJUAN HUBBARD Dictated By: Dajuan Hubbard D.O. Signed By:09/04/232224 DD/ 3 TD/TT: Respiratory Scientist: us José Miguel Prateek DO [facility] Final Result documented in this encounter Visit Diagnoses Not on filedocumented in this encounter Care Teams Transportation Logistics Internship Relationship Specialty Start Date End Date Dara Cat MD [address] [place] [address] PCP - General Family Medicine 07/25/22 documented as of this encounter
--- OUTSIDE RECORDS SUMMARY | 2024-10-13 12:24 | XMS_ITS | Clinical Summary ---
Author Organization [facility] Address [address] [place] [address] Care Team Providers Care Quality Analyst/Technical Writer Name Role Phone Dara Cat MD Primary Care Provider [phone] Allergies Active Allergy Reactions Criticality Noted Date Comments Sulfa Antibiotics Hives,Unknown Medium 02/28/2013 Medications Multiple Vitamins-Minera ls (ONE A DAY IMMUNITY DEFENSE PO) Take by mouth Acti ve Ascorbic Acid (vitamin C) 250 MG tablet Take 500 mg by mouth Daily Active hydrOXYzine HCl (Atarax) 25 MG tablet Take 25 mg by mouth every 8 (eight) hours if needed for itching 5 10/15/19 25 Active methylPREDNISol one (Medrol) 4 MG tablet Take by mouth as dose pack recommends for 6 days 5 Active methylPREDNISol one (Medrol Dospak) 4 MG tablets TAKE 6 TABLETS ON DAY 1 DIRECTED ON PACKAGE AND DECREASE BY 1 TAB EACH DAY FOR A TOTAL OF 6 DAYS 5 Active Active Problems Problem Noted Date Diagnosed Date Abnormal glandular Papanicolaou smear of cervix 02/07/2024 High risk HPV infection 02/07/2024 CORI II (cervical intraepithelial neoplasia II) 1 04/08/2023 History of HPV infection 02/07/2024 Asthma 07/24/2023 Atheroscler of [place] artery of both legs with intermit claudication 06/22/2023 Bilateral renal cysts 06/22/2023 Coagulation disorder (HHS-HCC) 06/22/2023 Liver cyst 06/22/2023 Obesity (BMI 30.0-34.9) 06/22/2023 Seasonal allergic rhinitis 06/22/2023 Nonspecific chest pain 04/09/2017 Acute cystitis with hematuria 01/04/2016 Lumbar disc disorder 02/06/2014 Encounters Date Type Department Care Team Description 10/13/2024 9:20 AM EDT Procedure Visit [facility] [address] [facility] [address] José Miguel Chandra, DO Pap smear to confirm normal after abnormal result 10/13/2024 Bamboo flowsheet [facility] [address] [facility] [address] José Miguel Chandra, 10/06/2024 Travel from Last 3 Months Immunizations Immunization Administration Dates Next Due Influenza Whole 02/28/2013 Influenza, injectable, MDCK, preservative free, quadrivalent 03/26/2023 Influenza, injectable, quadr ivalent, preservative free 02/06/2022,02/13/2021,03/02/2020 Tdap 12/31/2019 Family History Relation Name Status Comments Father Alive Mother Social History Tobacco Use Types Packs/Day Years Used Date Smoking Tobacco: Never Smokeless Tobacco: Never Tobacco Cessation:Counseling Given: Not Answered Alcohol Use Standard Drinks/Week Comments Not Currently [...] often do you attend chur ch or holiness services? Never 01/24/2023 Do you belong to any clubs o r organizations such as anabaptist groups, unions, fraternal or athletic groups, or [...] when you are drinking? 1 or 2 Q3: How often do you have si x or more drinks on one occasion? Less than monthly 01/24/2023 Overall Financial Resource Strain (CARDIA) Answe r Date Recorded How hard is it for you to pa y for the very basics like food, housing, medical care, and heating? Not hard at all 01/24/2023 PHQ-2 Answer Date Recorded Patient Health Questionnaire-2 Score 0 06/22/2023 [facility] Occupat ional [facility] - Occupational [...] place to sleep or slept in a chcf (including now)? No 01/24/2023 Comments No Sex and Gender Information Value Date Recorded Sex Assigned at Female 01/24/2023 9:27 AM EST Legal Sex Female 9:28 PM EDT Gender Identity Female 01/24/2023 9:27 AM EST Sexual Orientation Not on file Last Filed Vital Signs Vital Sign Reading Time Taken Comments Blood Pressure 116/72 10/13/2024 9:30 AM EDT Pulse 67 07/24/2023 10:36 AM EDT Temperature 36.4 C (97.5 F) 07/24/2023 10:36 AM EDT Respiratory Rate - - Oxygen Saturation 99% 07/24/2023 10:36 AM EDT Inhaled Oxygen Concentration - - Weight 73.9 kg (163 lb) 10/13/2024 9:30 AM EDT Height 165.1 cm (5' 5 ) 08/07/2023 1:16 PM EDT Body Mass Index 27.12 08/07/2023 1:16 PM EDT Plan of Treatment Upcoming Encounters Date Type Department Care Team (Late st Contact Info) Description 10/19/2025 9:00 AM EDT Procedure Visit [facility] [address] [facility] [place] [address] José Miguel Chandra DO [address] [facility] [place] [address] Health Maintenance Due Date Last Done Comments CT Colonography 1963 Colonoscopy 1963 Colorectal Cancer Screening 1963 FIT-DNA 1963 FIT 1963 FOBT 1965 Sigmoidoscopy 1963 Mammogram 06/12/2024 06/13/2023, 3 , 08/19/2020, Additional history exists Influenza Vaccine (#1) 2024 , 03/26/2023, 02/06/2022, Additional history exists Cervical Cancer Screening 06/09/2029 HPV/Cotest 06/09/2029 03/07/2022 Pap Smear 06/09/2029 06/09/2024, 11/2 03/2023, 07/03/2023, Additional history exists Procedures Procedure Name Priority Date/Time Associated Diagnosis Comments PAP SMEAR Routine 06/09/2024 12:00 AM EDT BI MAMMOGRAM SCREENING TOMOSYNTHESIS BILATERAL Routine 06/13/2023 9:15 AM EDT Screening mammogram for breast cancer THINPREP PAP AND HPV MRNA E6/E7 REFLEX HPV 16,18/45 Routine 03/07/2022 from Last 3 Months or Most Recently Relevant to Health Maintenance Results * Pap Smear (06/09/2024 12:00 AM EDT) Swab Cervical swab / Unknown us José Miguel Prateek DO LAB CYTOLOGY ORDERABLES Final Re sult EXTERNAL LAB * Bilateral screening mammogram with tomosynthesis (06/13/2023 9:15 AM EDT) Anatomical Region Laterality Modality Breast Bilateral Mammography 06/13/2023 3:57 PM EDT Impressions 06/14/2023 8:07 AM EDT BIRADS 1 - Negative Follow-up: Routine Screening Mamm Board Certified Radiologists. Accredited by the ACR and FDA. MAMMOGRAPHY IS VERY IMPORTANT TO YOUR HEALTH. THE [employer] SOCIET[employer] GUIDELINES RECOMMEND THAT WOMEN 40 [...] BY: ELECTRONICALLY SIGNED BY: Herbie Alvarado MD Narrative 06/14/2023 8:07 AM EDT EXAMINATION: BI MAMMOGRAM SCREENING TOMOSYNTHESIS BILATERAL CLINICAL HISTORY:screening COMPARISON: February 15, 2022. RESULT: Digital mammography and 3D tomosynthesis of bilateral breasts was performed. Density: Almost entirely fatty [1] Overall appearance is stable. There is no suspicious mass, asymmetry, architectural distortion, or calcification Procedure Note Herbie Alvarado MD - 06/14/2023 EXAMINATION: BI MAMMOGRAM SCREENING TOMOSYNTHESIS BILATERAL CLINICAL HISTORY:screening COMPARISON: February 15, 2022. RESULT: Digital mammography and 3D tomosynthesis of bilateral breasts wasperformed. Density: Almost entirely fatty [1] Overall appearance is stable. There is no suspicious mass, asymmetry,architectural distortion, or calcification IMPRESSION: BIRADS 1 - Negative Follow-up: Routine Screening Mamm Board Certified Radiologists. Accredited by the ACR and FDA. MAMMOGRAPHY IS VERY IMPORTANT TO YOUR HEALTH. THE AUSTRIAN CANCER SOCIETYGUIDELINES RECOMMEND THAT WOMEN 40 YEARS OF AGE AND OLDER SHOULD HAVE AMAMMOGRAM EVERY YEAR. A REMINDER LETTER WILL BE SENT AT THE APPROPRIATE TIME. THIS FACILITYUTILIZES A REMINDER SYSTEM TO ENSURE ALL PATIENTS RECEIVE REMINDERNOTIFICATIONS AT THE APPROPRIATE TIME BASED ON THE RECOMMENDATIONS OF THISEXAM. THIS INCLUDES REMINDERS FOR ROUTINE SCREENING MAMMOGRAMS, DIAGNOSTICMAMMOGRAMS IN WHICH THE PATIENT IS ASKED TO RETURN FOR ADDITIONAL VIEWS,OR OTHER BREAST IMAGING INTERVENTIONS WHEN APPROPRIATE. THE PATIENT WILLBE PLACED IN THE APPROPRIATE REMINDER SYSTEM INCLUDING A REMINDER AT THEAPPROPRIATE TIME FOR ANY PENDING ADDITIONAL VIEWS. TRANSCRIBED BY: ELECTRONICALLY SIGNED BY: Herbie Alvarado MD Cheryl Turner RECORD SYSTEMS ANALYST IMG BI PROCEDURES Final Result * (ABNORMAL) THINPREP PAP AND HPV MRNA E6/E7 REFLEX HPV 16,18/45 (03/07/2022) CLINICAL INFORMATION: None given [facility] LMP: None given [facility]. PAP: None given [facility] PRE[facility]. BX: None given [facility] SOURCE: None given [facility] STATEMENT OF ADEQUACY: SEE COMMENT [facility] Comment: Satisfactory for evaluation. Endocervical/transformation zone component present. INTERPRETATION/RES ULT: SEE COMMENT [facility] Comment: Negative for intraepithelial lesion or malignancy. Atrophic pattern; predominantly parabasal cells MEAL GRINDER TENDER: SEE COMMENT [facility] Comment: PCJ, SCT(ASCP) CT screening location: [email or web address] [address]. REVIEW MEAL GRINDER TENDER: SEE COMMENT [facility] Comment: NNO, CT(ASCP) CT screening location: [place] [address]. COMMENT SEE COMMENT [facility] Comment: EXPLANATORY NOTE: The Pap is a screening test for cervical cancer. It is not a diagnostic test and is subject to false negative and false positive results. It is most reliable when a satisfactory sample, regularly obtained, is submitted with relevant clinical findings and history, and when the Pap result is evaluated along with historic and current clinical information. HPV MRNA E6/E7 Detected(A ) Not Detected [facility] Comment: Methodology: Corporate Responsibility Officer-Mediated Amplification This assay detects E6/E7 viral messenger RNA (mRNA) from 14 high-risk HPV types (16,18,31,33,35,39,45,51,52,56,58,59,66,68). Cervical sources are required for HPV testing. If a vaginal source from a patient who has had a total hysterectomy with removal of cervix was submitted, please contact the testing laboratory for alternative testing options. For additional information, please refer to http://[email or web address]/faq/LFY275f2 (This link if provided for information/ educational purposes only.) 03/07/2022 [facility] Final Result [facility] from Last 3 Months or Most Recently Relevant to Health Maintenance Insurance [employer]BS Care Teams Quality Analyst/Technical Writer Relationship Specialty Start Date End Date Dara Cat MD [address] [place] [address] PCP - General Family Medicine 07/25/22
--- OUTSIDE RECORDS SUMMARY | 2024-10-13 12:24 | XMS_ITS | Encounter Summary ---
Author Organization [facility] Address [address] [place] [address] Care Team Providers Care Senior Financial Name Role Phone Dara Cat MD Primary Care Provider [phone] Encounter Details Date Type Department Care Team (Late st Contact Info) Description 10/13/2024 Bamboo flowsheet [facility] [address] [facility] [place] [address] José Miguel Chandra DO [address] [facility] [address] [place], [facility] Social History Tobacco Use Types Packs/Day Years [...] often do you attend chur ch or christian services? Never 01/24/2023 Do you belong to [...] Recorded Patient Health Questionnaire-2 Score 0 06/22/2023 [facility] - Occupational Stress Questionnaire Answer Date Recorded [...] place to sleep or slept in a skilled nursing (including now)? No 01/24/2023 Comments No Sex [...] EDT Procedure Visit [facility] [address] [facility] [place] [address] José Miguel Chandra DO [address] [facility] [place] [address] documented as of this encounter Visit Diagnoses Not on filedocumented in this encounter Care Teams Senior Financial Relationship Specialty Start Date End Date Dara Cat MD [address] [place] [address] PCP - General Family Medicine 07/25/22 documented as of this encounter
--- OUTSIDE RECORDS SUMMARY | 2024-10-13 12:24 | XMS_ITS | Encounter Summary ---
Author Organization [facility] Address [address] [place] [address] Care Team Providers Care Interior Assemblies Installer Name Role Phone Dara Cat MD Primary Care Provider [phone] Encounter Details Date Type Department Care Team (Late st Contact Info) Description 10/08/2023 Abstract [facility] [address] [facility] [place] [address] José Miguel Chnadra DO [address] [facility] [address] [place], [place] [id number] Social History Tobacco Use Types Packs/Day Years [...] often do you attend chur ch or sabianist services? Never 01/24/2023 Do you belong to any clubs o r organizations such as protestant groups, unions, fraternal or athletic groups, or [...] Recorded Patient Health Questionnaire-2 Score 0 06/22/2023 [facility] - Occupational Stress Questionnaire Answer Date [...] 9:00 AM EDT Procedure Visit [facility] [address] [place] [address] José Miguel Chandra DO [address] [facility] [address] [place], [place] [id number] documented as of this encounter Visit Diagnoses Not on filedocumented in this encounter Care Teams Interior Assemblies Installer Relationship Specialty Start Date End Date Dara Cat MD [address] [place] [address] PCP - General Family Medicine 07/25/22 documented as of this encounter
--- OUTSIDE RECORDS SUMMARY | 2024-10-13 12:24 | XMS_ITS | Encounter Summary ---
Author Organization [facility] Address [address] [place] [address] Care Team Providers Care Ent Consultant Name Role Phone Dara Cat MD Primary Care Provider [phone] Encounter Details Date Type Department Care Team (Late st Contact Info) Description 10/08/2023 Abstract [facility] [address] [address] José Miguel Chandra DO [address] [facility] [address] [place], [place] [id number] Social History Tobacco Use Types Packs/Day Years [...] often do you attend chur ch or muslim services? Never 01/24/2023 Do you belong to any clubs o r organizations such as religious groups, unions, fraternal or athletic groups, or [...] Recorded Patient Health Questionnaire-2 Score 0 06/22/2023 [facility] Occupat ional [facility] - Occupational Stress Questionnaire Answer Date [...] place to sleep or slept in a nursing home (including now)? No 01/24/2023 Comments No Sex [...] EDT Procedure Visit [facility] [address] [facility] [place] [address] José Miguel Chandra DO [address] [facility] [address] [place], [place] [address] documented as of this encounter Visit Diagnoses Not on filedocumented in this encounter Care Teams Ent Consultant Relationship Specialty Start Date End Date Dara Cat MD [address] [place] [address] PCP - General Family Medicine 07/25/22 documented as of this encounter
--- OUTSIDE RECORDS SUMMARY | 2024-10-13 12:24 | XMS_ITS | Encounter Summary ---
Author Organization [facility] Address [address] [place] [address] Care Team Providers Care Chief Passenger Ship Steward/Stewardess Name Role Phone Dara Cat MD Primary Care Provider [phone] Encounter Details Date Type Department Care Team (Late st Contact Info) Description 10/08/2023 Abstract [facility] [address] [facility] [place] [address] José Miguel Chandra DO [address] [facility] [address] [facility] [address] [place], [place] [id number] Social History Tobacco Use Types Packs/Day Years [...] often do you attend chur ch or shinto services? Never 01/24/2023 Do you belong to any clubs o r organizations such as lutheran groups, unions, fraternal or athletic groups, or [...] Recorded Patient Health Questionnaire-2 Score 0 06/22/2023 [facility] of Occupat ional [facility] - Occupational Stress Questionnaire Answer Date [...] place to sleep or slept in a care home (including now)? No 01/24/2023 Comments No [...] EDT Procedure Visit [facility] [address] [facility] [place] [address] José Miguel Chandra DO [address] [facility] [address] [place], [place] [address] documented as of this encounter Visit Diagnoses Not on filedocumented in this encounter Care Teams Chief Passenger Ship Steward/Stewardess Relationship Specialty Start Date End Date Dara Cat MD [address] [place] [address] PCP - General Family Medicine 07/25/22 documented as of this encounter
--- OUTSIDE RECORDS SUMMARY | 2024-10-13 12:24 | XMS_ITS | Encounter Summary ---
Author Organization [facility] Address [address] [place] [address] Care Team Providers Care Risk Analyst Name Role Phone Dara Cat MD Primary Care Provider [phone] Encounter Details Date Type Department Care Team (Latest Contact Info) Description 10/06/2024 Travel Social History Tobacco Use Types Packs/Day Years [...] week 01/24/2023 How often do you attend [facility] or buddhism services? Never 01/24/2023 Do you belong to any clubs o r organizations such as congregational groups, unions, fraternal or athletic groups, or [...] Recorded Patient Health Questionnaire-2 Score 0 06/22/2023 [facility] Occupat ional Health - Occupational Stress [...] place to sleep or slept in a prison (including now)? No 01/24/2023 Comments No Sex [...] EDT Procedure Visit [facility] [address] [facility] [place] [address] José Miguel Chandra DO [address] [facility] [address] [place], [place] [address] documented as of this encounter Visit Diagnoses Not on filedocumented in this encounter Care Teams Risk Analyst Relationship Specialty Start Date End Date Dara Cat MD [address] [place] [address] PCP - General Family Medicine 07/25/22 documented as of this encounter
--- OUTSIDE RECORDS SUMMARY | 2024-10-13 12:24 | XMS_ITS | Encounter Summary ---
Author Organization [facility] Address [address] [place] [address] Care Team Providers Care Ammonia Box Tender Name Role Phone Dara Cat MD Primary Care Provider [phone] Encounter Details Date Type Department Care Team (Late st Contact Info) Description 03/03/2024 Orders Only [facility] [address] [place] [address] Lucy Balderas LPN [address] [place] [address] Social History Tobacco Use Types Packs/Day Years [...] often do you attend chur ch or hoahaoism services? Never 01/24/2023 Do you belong to any clubs o r organizations such as moravian groups, unions, fraternal or athletic groups, or [...] Recorded Patient Health Questionnaire-2 Score 0 06/22/2023 [facility] of Occupat ional [facility] - Occupational Stress Questionnaire Answer Date [...] place to sleep or slept in a fdc (including now)? No 01/24/2023 Comments No Sex [...] 10/19/2025 9:00 AM EDT Procedure Visit [facility] [address] [facility] [id number] José Miguel Chandra DO [address] [facility] [address] [place], [place] [id number] documented as of this encounter Procedures Procedure Name Priority Date/Time Associated Diagnosis Comments PAP SMEAR Routine 02/07/2024 12:00 AM EST documented in this encounter Results * Pap Smear (02/07/2024 12:00 AM EST) Swab Cervical swab / Unknown us Karla [facility]IG[facility] LAB CYTOLOGY ORDERABLES Final Re sult EXTERNAL LAB documented in this encounter Visit Diagnoses Not on filedocumented in this encounter Care Teams Ammonia Box Tender Relationship Specialty Start Date End Date Dara Cat MD [address] [place] [address] PCP - General Family Medicine 07/25/22 documented as of this encounter
--- OUTSIDE RECORDS SUMMARY | 2024-10-13 12:24 | XMS_ITS | Encounter Summary ---
Author Organization [facility] Address [address] [place] [address] Care Team Providers Care Panel Machine Operator Name Role Phone Dara Cat MD Primary Care Provider [phone] Encounter Details Date Type Department Care Team (Late st Contact Info) Description 10/03/2023 Abstract [facility] [address] [place] [address] Josefa Sheth LPN [address] [place] [address] Social History Tobacco Use Types Packs/Day Years [...] often do you attend chur ch or mandaeism services? Never 01/24/2023 Do you belong to any clubs o r organizations such as restorationism groups, unions, fraternal or athletic groups, or [...] 0 06/22/2023 [facility] of Occupat ional [facility] - Occupational Stress Questionnaire Answer Date Recorded [...] place to sleep or slept in a halfway (including now)? No 01/24/2023 Comments No Sex [...] 9:00 AM EDT Procedure Visit [facility] [address] [facility] [place] [address] José Miguel Chandra DO [address] [facility] [address] [place], [place] [id number] documented as of this encounter Visit Diagnoses Not on filedocumented in this encounter Care Teams Panel Machine Operator Relationship Specialty Start Date End Date Dara Cat MD [address] [place] [address] PCP - General Family Medicine 07/25/22 documented as of this encounter
--- OUTSIDE RECORDS SUMMARY | 2024-10-13 12:24 | XMS_ITS | Encounter Summary ---
Author Organization [facility] Address [address] [place] [address] Care Team Providers Care Court Bailiff Or Sheriff Name Role Phone Dara Cat MD Primary Care Provider [phone] Encounter Details Date Type Department Care Team (Late st Contact Info) Description 06/19/2024 Orders Only [facility] [address] [facility] [place] [phone] Sanjay [place], [place] [address] [facility] [place] [address] Social History Tobacco Use Types Packs/Day Years [...] How often do you attend chur or samaritan services? Never 01/24/2023 Do you belong to any clubs o r organizations such as roman catholic groups, unions, fraternal or athletic groups, or [...] Recorded Patient Health Questionnaire-2 Score 0 06/22/2023 [facility] - [facility]ational Stress Questionnaire Answer [...] EDT Procedure Visit [facility] [address] [facility] [place] [id number] José Miguel Chandra DO [address] [facility] [place] [address] documented as of this encounter Procedures Procedure Name Priority Date/Time Associated Diagnosis Comments PAP SMEAR Routine 06/09/2024 12:00 AM EDT documented in this encounter Results * Pap Smear (06/09/2024 12:00 AM EDT) Swab Cervical swab / Unknown us José Miguel Chandra DO LAB CYTOLOGY ORDERABLES Final Re sult EXTERNAL LAB documented in this encounter Visit Diagnoses Not on filedocumented in this encounter Care Teams Court Bailiff Or Sheriff Relationship Specialty Start Date End Date Dara Cat MD [address] [place] [address] PCP - General Family Medicine 07/25/22 documented as of this encounter
--- OUTSIDE RECORDS SUMMARY | 2024-10-13 12:24 | XMS_ITS | Clinical Summary ---
Author Organization [facility] Address [id number] [address] [place] [address] Care Team Providers Care Frame Stripper Name Role Phone Jess Alcantara TRANSCRIBING MACHINE OPERATOR-MACHINE BRUSH MAKER Primary Care P rovider Allergies Active Allergy Reactions Criticality Noted Date Comments Sulfacetamide Sodium 01/22/2016 Medications ibuprofen (ADVIL,MOTRIN) 600 mg tablet Take 1 tablet by mouth 2 times daily. 02/06/2014 Active Immunizations Immunization Administration Dates Next Due Tdap 12/31/2019 Social History Tobacco Use Types Packs/Day Years Used Date Smoking Tobacco: Never Smokeless Tobacco: Never Alcohol Use Standard Drinks/Week Comments No 0 (1 standard drink = 0.6 oz pur e alcohol) Childcare Answer Date Recorded Childcare Unknown 08/28/2018 Employment Answer Date Recorded Employment Unknown 08/28/2018 Purpose - Life Answer Date Recorded Purpose and direction in life Unknown Comments No Sex and Gender Information Value Date Recorded Sex Assigned at Not on file Legal Sex Female 11:24 AM EDT Gender Identity Not on file Sexual Orientation Not on file Last Filed Vital Signs Vital Sign Reading Time Taken Comments Blood Pressure 140/80 12/31/2019 7:09 AM EDT Pulse 68 12/31/2019 7:09 AM EDT Temperature 36.7 C (98 F) 12/31/2019 6:01 AM EDT Respiratory Rate 18 12/31/2019 7:09 AM EDT Oxygen Saturation 99% 12/31/2019 7:09 AM EDT Inhaled Oxygen Concentration - - Weight 79.4 kg (175 lb) 12/31/2019 6:01 AM EDT Height 172.7 cm (5' 8 ) 12/31/2019 6:01 AM EDT Body Mass Index 26.61 12/31/2019 6:01 AM EDT Plan of Treatment Health Maintenance Due Date Last Done Comments Depression Screening 1975 Tobacco Screening 1975 Adult BMI Screening 10/21/1981 Pap Smear 10/21/1984 Zoster (Shingles) Vaccine (1 of 2) 10/21/2013 Influenza Vaccine 11/17/2024 02/28/2013 DTaP,Tdap and Td Vaccines (2 - Td or Tdap) 12/30/2029 12/31/2019 Medical Devices Not on file Insurance ANTH Care Teams Frame Stripper Relationship Specialty Start Date End Date Jess Alcantara, TRANSCRIBING MACHINE OPERATOR-MACHINE BRUSH MAKER PCP - General Family Medicine 07/19/20
--- OUTSIDE RECORDS SUMMARY | 2024-10-13 12:25 | XMS_ITS | Encounter Summary ---
Author Organization [facility] Address [address] [place] [address] Care Team Providers Care Bottom Scrubber Name Role Phone Dara Cat MD Primary Care Provider [phone] Encounter Details Date Type Department Care Team (Late st Contact Info) Description 09/27/2023 Orders Only [facility] [place] [facility] [address] [address] Josefa Sheth LPN [address] [place] [id number] Social History Tobacco Use Types Packs/Day Years [...] often do you attend chur ch or yarsanism services? Never 01/24/2023 Do you belong to any clubs o r organizations such as anglican groups, unions, fraternal or athletic groups, or [...] Recorded Patient Health Questionnaire-2 Score 0 06/22/2023 [facility] - Occupational Stress Questionnaire Answer Date [...] place to sleep or slept in a mcc (including now)? No 01/24/2023 Comments No Sex [...] EDT Procedure Visit [facility] [address] [place] [id number] José Miguel Chandra DO [address] [place], [place] [id number] documented as of this encounter Procedures Procedure Name Priority Date/Time Associated Diagnosis Comments PAP SMEAR Routine 07/03/2023 12:00 AM EDT documented in this encounter Results * Pap Smear (07/03/2023 12:00 AM EDT) Swab Cervical swab / Unknown [facility] CYTOLOGY ORDERABLES Final Result EXTERNAL LAB documented in this encounter Visit Diagnoses Not on filedocumented in this encounter Care Teams Bottom Scrubber Relationship Specialty Start Date End Date Dara Cat MD [address] [place] [address] PCP - General Family Medicine 07/25/22 documented as of this encounter
--- OUTSIDE RECORDS SUMMARY | 2024-10-13 12:25 | XMS_ITS | Clinical Summary ---
Author Organization [facility] Address [address] [place] [address], [address] [place] [address] Care Team Providers Care Regional Geodetic Advisor Name Role Phone Kyle Shelton MD Primary Care Provider + Allergies Active Allergy Reactions Criticality Noted Date Comments Sulfa Antibiotics Hives Medium 02/28/2013 Medications ibuprofen (ADVIL;MOTRIN) 600 MG tablet Take 1 tablet by mouth 2 times daily. 60 tablet 2 4 Active Additional Information Patient taking differently:600 mg OralPRN, Reported on 01/28/2016 methylPREDNISo lone (MEDROL DOSEPACK) 4 MG tabletIndicati ons:Allergic reaction to wasp sting Take by mouth as dose pack recommends for 6 days 21 tablet 5 Active hydrOXYzine HCl (ATARAX) 25 MG tabletIndicati ons:Allergic reaction to wasp sting Take 1 tablet by mouth every 8 hours as needed for Itching 30 tablet 5 10/15/19 25 Active estradiol (ESTRACE VAGINAL) 0.1 MG/GM vaginal creamIndicatio ns:Recurrent UTI,Vaginal atrophy Place 1 g vaginally Twice a Week 1 Tube 5 7 10/05/19 25 Discontin ued(LIST CLEANUP) lisinopril (PRINIVIL;ZEST RIL) 10 MG tablet Take 1 tablet by mouth daily 4 10/05/19 25 Discontin ued(LIST CLEANUP) Active Problems Problem Noted Date Diagnosed Date Asthma 10/04/2024 Acute cystitis with hematuria 01/04/2016 Lumbar disc disorder 02/06/2014 Bilateral renal cysts Encounters Date Type Department Care Team Description 10/04/2024 10:15 AM EDT Office Visit [facility] [place] [address] Katey Vasquez APRN - NP Allergic reaction to wasp sting (Primary Dx) from Last 3 Months Immunizations Immunization Administration Dates Next Due Influenza Virus Vaccine 02/28/2013 Family History Medical History Relation Name Comments Diabetes Father High Blood Pressure Father Asthma Mother Relation Name Status Comments Father Alive Mother Alive Sister Alive Social History Tobacco Use Types Packs/Day Years [...] Mass Index 26.79 10/04/2024 11:01 AM EDT Plan of Treatment Health Maintenance Due Date Last Done Comments Depression Screen 1975 HIV screen 10/21/1978 Hepatitis C screen 10/21/1981 Pneumococcal 50+ years Vaccine (1 of 2 - PCV) 10/21/1982 Pap smear 10/21/1984 Cervical cancer screen 10/21/1993 HPV (without or with Pap) 10/21/1993 Diabetes screen 10/21/1998 Lipids 2003 FIT/FOBT: Average risk 10/21/2008 Fecal-DNA (Cologuard): Average risk 10/21/2008 Sigmoidoscopy/CT colonography 10/21/2008 Shingles vaccine (1 of 2) 10/21/2013 Breast cancer screen 08/19/2022 08/19/2020, 06/18/2018, 04/26/2015 (Postponed), Additional history exists Respiratory Syncytial Virus (RSV) or age 60 yrs+ (1 - Risk 60-74 years 1-dose series) 2023 COVID-19 Vaccine ( season) 2023 02/13/2021, 06/22/2020, 05/31/2020 Flu vaccine (#1) 10/17/2024 03/26/2023, , 02/13/2021, Additional history exists Colonoscopy 04/26/2025 04/26/2015 (Declined) Colorectal Cancer Screen 04/26/2025 DTaP/Tdap/Td vaccine (2 - Td or Tdap) 12/30/2029 12/31/2019 Hepatitis A vaccine Aged Out No longe r eligible based on patient's age to complete this topic Hepatitis B vaccine Aged Out No longe r eligible based on patient's age to complete this topic Hib vaccine Aged Out No longer eligi ble based on patient's age to complete this topic Meningococcal (ACWY) vaccine Aged Out No longer eligible based on patient's age to complete this topic Meningococcal B vaccine Aged Out No l onger eligible based on patient's age to complete this topic Polio vaccine Aged Out No longer elig ible based on patient's age to complete this topic Insurance [place] Care Teams Regional Geodetic Advisor Relationship Specialty Start Date End Date Kyle Shelton MD [address] [place] [address] PCP - General Family Medicine 07/10/18
[2024-10-15 21:08] LABS: HPV Genotype 18,45 Negative (Negative); Pap IG (Image Guided) Note (.)
== END 2024-10-13 12:18 | disposition home or self-care (01) ==
LOC: LAB 12:17
PROVIDERS: Visit Provider Obstetrics & Gynecology
DX: Z01.42 Encounter for cervical smear to confirm findings of recent normal smear following initial abnormal smear (principal)
CPT/HCPCS: 87624; 87625; 88175